=== PATIENT | male | born 1990 | race African-American/Black ===

== ENCOUNTER 2017-01-31 05:35 | Observation (INO) ==
[2017-01-31] MEDS ORDERED: DIPH/TET/ACEL PERT BOOSTER VACCINE 0.5 ML VIAL IM ONE ×2 (05:38→05:45)
[2017-01-31] MEDS ORDERED: ONDANSETRON 4 MG/2 ML VIAL IV STA (05:38)
[2017-01-31] MEDS ORDERED: HYDROmorphone 2 MG/1 ML VIAL IV STA ×2 (05:38→05:53)
[2017-01-31] MEDS ORDERED: LACTATED RINGERS 1,000 ML IV STA (05:38)
[2017-01-31] MEDS ORDERED: cefTRIAXone 1,000 MG in SODIUM CHLORIDE 0.9% 100 ML IV STA (05:40)
[2017-01-31] MEDS ORDERED: ONDANSETRON 4 MG/2 ML VIAL ONE ×2 (05:44→11:00)
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
[2017-01-31] MEDS ORDERED: HYDROmorphone 2 MG/1 ML VIAL ONE ×2 (05:45→05:56)
[2017-01-31] MEDS ORDERED: cefTRIAXone 1,000 MG VIAL ONE (05:45)
[2017-01-31] MEDS ORDERED: SODIUM CHLORIDE 0.9% 100 ML IV ONE (05:45)
[2017-01-31 05:55] LABS: Basophils # 0.1 10*3/uL (0.0-0.2); Basophils % 0.8 % (0.0-0.8); Eosinophils # 0.1 10*3/uL (0.0-0.87); Eosinophils % 2.1 % (0.00-10.9); Immature Granulocytes % 0.2 %; Immature Granulocytes Absolute 0.01 #; Lymphocytes # 2.9 10*3/uL (1.4-4.0); Lymphocytes % 43.9 % (21.2-54.2); Mean Corpuscular HGB Conc 34.9 GM/DL (32-36); Mean Corpuscular Hemoglobin 31 PG (27-34); Mean Corpuscular Volume 88.3 FL (87-102); Mean Platelet Volume 10.7 FL (9.6-12.0); Monocytes # 0.9 10*3/uL (0.11-0.8); Neutrophils # 2.7 10*3/uL (1.4-7.4); Platelet Count 185 T/CUMM (130-400); Red Blood Count 4.87 MC/CUMM (3.8-5.5); Red Cell Distribution Width 12.1 % (9.3-17.3); White Blood Count 6.6 T/CUMM (4-12)
[2017-01-31 06:05] LABS: PT Patient Result 10.7 SECS; Partial Thromboplastin Time 26.1 SECS (0-40)
[2017-01-31 06:26] LABS: Alanine Aminotransferase 16 U/L (16-61); Alkaline Phosphatase 99 U/L (45-117); Amylase 77 U/L (25-115); Aspartate Amino Transferase 9 U/L (0-37); Bilirubin,Total < 0.39 MG/DL (0.2-1.0); Blood Urea Nitrogen 14 MG/DL (7-18); Calcium 9.6 MG/DL (8.5-10.1); Glucose 85 MG/DL (74-106); Lactic Acid 5.6 MMOL/L (0.4-2.0); Osmolality,Calculated 278.4 MOS/KG (273-304); Potassium 3.1 MMOL/L (3.5-5.1); Sodium 140 MMOL/L (136-145); Total Protein 7.8 G/DL (6.4-8.3)
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
[2017-01-31] MEDS: LACTATED RINGERS 1,000 ML IV SCH ×2 (07:05→08:41)
[2017-01-31 07:55] LABS: Apearance,Urine CLEAR (Clear); Bilirubin,Urine Negative (Negative); Blood, Urine Negative (Negative); Glucose,Urine (UA) Negative (Negative); Ketones,Urine Negative (Negative); Mucus,Urine Occasional /LPF (Occasional); Nitrite,Urine Negative (Negative); Protein,Urine Negative; RBC,Urine <1 /HPF (0-4); Squamous Epithelial Cell,Urine Occasional /HPF (0-10); Urine Color Yellow (Yellow); Urine Specific Gravity 1.009 (1.001-1.035); Urine Urobilinogen < 2.0 EU/DL (0.2-1.0); WBC,Urine <1 /HPF (0-6)
[2017-01-31] MEDS ORDERED: POLYMYXIN B 500,000 UNIT VIAL ONE (08:02)
[2017-01-31] MEDS ORDERED: BACITRACIN 50,000 UNIT VIAL ONE (08:02)
[2017-01-31 08:07] LABS: Hepatitis A Ab IgM Quant 0.06 Index; Hepatitis A Ab IgM Result Negative (Negative); Hepatitis B Core IgM Quant 0.13 Index; Hepatitis B Core IgM Result Negative (Negative); Hepatitis B Surface Ag Quant < 0.10 Index; Hepatitis B Surface Ag Result Negative (Negative); Hepatitis C Virus Ab Result Negative (Negative)
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
[2017-01-31 08:24] LABS: HIV Antigen/Antibody Result Nonreactive (Nonreactive)
[2017-01-31] MEDS ORDERED: MUPIROCIN 2% OINT 22 GM TUBE TOP ONE (08:24)
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
[2017-01-31 08:27] LABS: Barbiturates Screen,Urine Negative (Negative); Benzodiazepines Screen,Urine Negative (Negative); Cannabinoid Screen,Urine Positive (Negative); Opiate Screen,Urine Positive (Negative); Phencyclidine Screen,Urine Negative (Negative)
[2017-01-31] MEDS ORDERED: PROMETHAZINE 25 MG/1 ML VIAL IM PRN (08:32)
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
--- NOTE | 2017-01-31 09:09 | Anesthesia Post-Op ---
Anesthesia Post OP - Post Ansesthetic Evaluation Patient seen in post op: Yes Resp: within normal limits CV: within normal limits Mental: within normal limits Temp: within normal limits [id number]-[id number]: within normal limits Nausea and Vomiting: within normal limits Pain: within normal limits
[2017-01-31] MEDS ORDERED: MIDAZOLAM 2 MG/2 ML VIAL ONE (09:12)
[2017-01-31] MEDS ORDERED: SUCCINYLCHOLINE 200 MG/10 ML VIAL ONE ×2 (09:12→11:00)
[2017-01-31] MEDS ORDERED: HYDROmorphone 2 MG/1 ML VIAL IV PRN (09:24)
[2017-01-31] MEDS ORDERED: ONDANSETRON 4 MG/2 ML VIAL IV PRN (09:24)
[2017-01-31] MEDS ORDERED: MEPERIDINE 25 MG/1 ML VIAL IV PRN (09:40)
[2017-01-31] MEDS ORDERED: MEPERIDINE 25 MG/1 ML VIAL ONE (09:40)
[2017-01-31] MEDS ORDERED: PROPOFOL 200 MG/20 ML VIAL IV ONE (11:00)
[2017-01-31] MEDS ORDERED: LIDOCAINE 1% 5 ML VIAL ONE (11:00)
[2017-01-31] MEDS ORDERED: guaiFENesin 200 MG/10 ML UDCUP PO PRN (20:36)
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
[2017-02-01 12:22] VITALS: BP 116/78
== END 2017-02-01 14:30 | disposition home or self-care (01) ==
LOC: N.ED 05:35 → N.EDINP 05:35 → N.5E 10:37
PROVIDERS: ADMIT Urology; ATTEND Urology